=== PATIENT | male | born 1945 | race Caucasian/White ===

== ENCOUNTER → 2017-09-25 | Outpatient (CLI) | payer MEDICARE ==
[~2017-09-25] MED LIST: AZIT250 PO; Altoprev20 MG PO; BENTYL10 MG PO; HYDR1TAB94 PO; Mylanta Gas Ma125 MG PO; OMEP10ER PO; Omeprazole20 M1 PO; ZESTORETIC 20-1 EAC1 PO; ZESTORETIC 20-121 EA PO
== END | disposition home or self-care (01) ==
LOC: LAB EV 11:36
DX: L73.9 Follicular disorder, unspecified (principal)
CPT/HCPCS: 87070; 87075; 87205

== ENCOUNTER 2018-04-07 10:59 | Emergency (ER) | payer MEDICARE ==
[~2018-04-07] VITALS: Ht 172.7 cm; Wt 99.8 kg
[~2018-04-07 10:59] MED LIST changes: -ZESTORETIC 20-1 EAC1 PO
[2018-04-07 11:26] LABS: BASOPHILS ABSOLUTE AUTO 0.07 K/mm3 (0.00-0.23); BASOPHILS PERCENT AUTO 1 % (0-2); EOSINOPHILS ABSOLUTE AUTO 0.25 K/mm3 (0.00-0.68); EOSINOPHILS PERCENT AUTO 3 % (0-6); Hematocrit 49.3 % (37.0-53.0); Hemoglobin 16.5 g/dL (13.5-17.5); IMMATURE GRAN ABSOLUTE AUTO 0.02 K/mm3 (0.00-0.10); IMMATURE GRAN PERCENT AUTO 0 % (0-1); LYMPHOCYTES ABSOLUTE AUTO 2.29 K/mm3 (0.84-5.20); LYMPHOCYTES PERCENT AUTO 26 % (21-46); MONOCYTES ABSOLUTE AUTO 0.67 K/mm3 (0.16-1.47); MONOCYTES PERCENT AUTO 8 % (4-13); Mean Corpuscular HGB 31.7 pg (26.0-34.0); Mean Corpuscular HGB Conc 33.5 g/dL (31.5-36.5); Mean Corpuscular Volume 95 fL (80-100); NEUTROPHILS PERCENT AUTO 63 % (41-73); Platelet Count 316 K/mm3 (150-400); RDW Standard Deviation 45.8 fL (35.1-46.3)
[2018-04-07 11:43] LABS: Alanine Aminotransfer (ALT/SGP 40 U/L (12-78); Albumin, Blood 4.1 g/dL (3.4-5.0); Alk Phos 71 U/L (50-136); Anion Gap 9 mmol/L (6-16); Aspartate Aminotrans (AST/SGOT 23 U/L (12-37); Bilirubin, Total 0.8 mg/dL (0.1-1.0); Blood Urea Nitrogen 10 mg/dL (8-24); Bun/Creatinine Ratio 10.3 (12.0-20.0); CO2, Blood 22 mmol/L (21-32); Calcium, Blood 9.1 mg/dL (8.5-10.1); Chloride, Blood 106 mmol/L (98-108); Creatinine, Blood 0.97 mg/dL (0.60-1.20); Globulin, Blood 4.3 g/dL (2.2-4.0); Glomerular Filtration Rate >60 (60-); Glucose, Blood 103 mg/dL (70-99); Potassium, Blood 3.9 mmol/L (3.5-5.5); Sodium, Blood 137 mmol/L (136-145); Total Protein, Blood 8.4 g/dL (6.4-8.2); Troponin I <0.015 ng/mL (0.000-0.040)
[2018-04-07] MEDS ORDERED: ZESTORETIC 20-1 EAC1 PO (12:02)
== END 2018-04-07 13:39 | disposition home or self-care (01) ==
LOC: ER 10:59
PROVIDERS: Emergency Medicine
DX: R00.2 Palpitations (principal); Z79.899 Other long term (current) drug therapy
CPT/HCPCS: 36415; 80053; 84443; 84484; 85025; 93005; 93010; 99285-25

== ENCOUNTER 2020-04-04 13:04 | Emergency (ER) | payer MEDICARE ==
[~2020-04-04] VITALS: Ht 172.7 cm; Wt 99.8 kg
[~2020-04-04 13:04] MED LIST changes: +ZESTORETIC 20-1 EAC1 PO
== END 2020-04-04 18:00 | disposition home or self-care (01) ==
LOC: ER 13:04
DX: N44.2 Benign cyst of testis (principal); I10 Essential (primary) hypertension; E78.5 Hyperlipidemia, unspecified; Z79.899 Other long term (current) drug therapy
CPT/HCPCS: 76870; 99284-25

== ENCOUNTER 2024-12-02 11:14 | Day surgery (SDC) | payer MEDICARE ==
[~2024-12-02] VITALS: Ht 172.7 cm; Wt 106.8 kg
[~2024-12-02 11:14] MED LIST changes: +Lactated Ringer's 1,000 ML IV ONE; +propofoL 50 ML IV ONE
[2024-12-02] MEDS ORDERED: ERGO400 (11:42)
[2024-12-02] MEDS ORDERED: VITAMIN B-1250 MCG (11:43)
[2024-12-02] MEDS ORDERED: Vitamin C100 M1 (11:43)
[2024-12-02] MEDS ORDERED: Lactated Ringer's 1,000 ML IV ONE (12:54)
[2024-12-02 14:23] VITALS: BP 112/68
== END 2024-12-02 14:15 | disposition home or self-care (01) ==
LOC: ORSCSDS 11:14
PROVIDERS: Internal Medicine Gastroenterology
PROC: 0DBN8ZX Excision of Sigmoid Colon, Via Natural or Artificial Opening Endoscopic, Diagnostic (ICD-10-PCS; principal; 2024-12-02 12:45)
PROC: 0DBM8ZX Excision of Descending Colon, Via Natural or Artificial Opening Endoscopic, Diagnostic (ICD-10-PCS; principal; 2024-12-02 12:45)
PROC: 0DBL8ZX Excision of Transverse Colon, Via Natural or Artificial Opening Endoscopic, Diagnostic (ICD-10-PCS; principal; 2024-12-02 12:45)
PROC: 0DBK8ZX Excision of Ascending Colon, Via Natural or Artificial Opening Endoscopic, Diagnostic (ICD-10-PCS; principal; 2024-12-02 12:45)
DX: Z12.11 Encounter for screening for malignant neoplasm of colon (principal); Z86.0100 Personal history of colon polyps, unspecified; K57.30 Diverticulosis of large intestine without perforation or abscess without bleeding; I10 Essential (primary) hypertension; D12.2 Benign neoplasm of ascending colon; D12.3 Benign neoplasm of transverse colon; D12.4 Benign neoplasm of descending colon; D12.6 Benign neoplasm of colon, unspecified; Z79.899 Other long term (current) drug therapy
CPT/HCPCS: 88305; J2704; J7120

== ENCOUNTER 2025-05-03 11:30 | Inpatient (IN) | payer MEDICARE ==
[~2025-05-03] VITALS: Ht 170.2 cm; Wt 106.1 kg
[~2025-05-03 11:30] MED LIST changes: +ERGO400; -Lactated Ringer's 1,000 ML IV ONE; +OMEP20ER PO; -Omeprazole20 M1 PO; +VITAMIN B-1250 MCG; +Vitamin C100 M1; -propofoL 50 ML IV ONE
[2025-05-03] MEDS ORDERED: Vancomycin (Pharmacy Consult) IV SCH (13:20)
[2025-05-03] MEDS ORDERED: FLU VACC TS2025(65UP)/MF59C/PF 45 MCG/0.5 ML SYRINGE IM SCH (13:20)
[2025-05-03] MEDS ORDERED: CefTRIAXone Sodium 1,000 MG in NS 100 ML IV SCH (13:32)
[2025-05-03 13:35] LABS: Influenza A, PCR NEGATIVE (NEGATIVE); Influenza B, PCR NEGATIVE (NEGATIVE); Resp Syncytial Virus, PCR NEGATIVE (NEGATIVE); SARS-Cov-2 (COVID-19) PCR, MMC NEGATIVE (NEGATIVE)
[2025-05-03] MEDS ORDERED: Vancomycin HCL 2,500 MG in NS 500 ML IV ONE (13:45)
[2025-05-03] MEDS ORDERED: CefTRIAXone 1000 MG Vial ONE (14:21)
[2025-05-03 14:59] VITALS: BP 177/79
[2025-05-03] MEDS ORDERED: HydrALAZINE HCl 20 MG / ML 1ML Vial IV PRN (16:40)
--- NOTE | 2025-05-03 18:27 | NUR ---
END OF SHIFT SUMMARY: A&Ox4. PLEASANT AND COOPERATIVE WITH CARE. CALLS APPROPRIATELY AND IS ABLE TO ADVOCATE NEEDS EFFECTIVELY. VSS. TELE STRIP IN CHART REVIEWED AND INTERPRETED SINUS. BREATHING EVEN AND UNLABORED c RA. CONTINENT OF BOWEL AND BLADDER; LBM 05/03/25. TOLERATING DIET. AMBULATES INDEPENDENTLY @ BASELINE; SBA WHILE HERE. MEDS WHOLE c FLUIDS. LR @ 100mL/hr AND VANCO CURRENTLY INFUSING. BED IN LOWEST POSITION, CALL LIGHT WITHIN REACH, ALL NEEDS MET. REPORT TO ONCOMING NURSE.
[2025-05-03 19:13] VITALS: BP 152/62
[2025-05-03] MEDS ORDERED: Lactobacil 2-S.Thermo-Bifido 1 1 Cap PO SCH (21:00)
[2025-05-04] VITALS (10 sets, daily range): BP systolic 104–162; BP diastolic 45–104
--- NOTE | 2025-05-04 04:38 | NUR ---
SHIFT SUMMARY: AOX4. TELEMETRY MONITORING, NSR 90s. ON RA. LUNG SOUNDS HAD SOME RHONCHI TO LEFT UPPER LOBES. PT RECIEVED MAALOX THIS EVENING FOR BELCHING WITH SOME RELIEF. PT TOLERATING CLEAR LIQUID DIET WITH NO NAUSEA/VOMITING. CALL LIGHT IS WITHIN REACH. BED IS LOW AND LOCKED.
[2025-05-04 04:55] LABS: BASOPHILS ABSOLUTE AUTO 0.04 K/mm3 (0.00-0.23); BASOPHILS PERCENT AUTO 0 % (0-2); EOSINOPHILS ABSOLUTE AUTO 0.00 K/mm3 (0.00-0.68); EOSINOPHILS PERCENT AUTO 0 % (0-6); Hematocrit 37.0 % (37.0-53.0); Hemoglobin 12.7 g/dL (13.5-17.5); IMMATURE GRAN ABSOLUTE AUTO 0.05 K/mm3 (0.00-0.10); IMMATURE GRAN PERCENT AUTO 0 % (0-1); LYMPHOCYTES ABSOLUTE AUTO 2.35 K/mm3 (0.84-5.20); LYMPHOCYTES PERCENT AUTO 20 % (21-46); MONOCYTES ABSOLUTE AUTO 0.83 K/mm3 (0.16-1.47); MONOCYTES PERCENT AUTO 7 % (4-13); Mean Corpuscular HGB Conc 34.3 g/dL (31.5-36.5); Mean Corpuscular Volume 91 fL (80-100); NEUTROPHILS ABSOLUTE AUTO 8.57 K/mm3 (1.96-9.15); NEUTROPHILS PERCENT AUTO 73 % (41-73); NRBC ABSOLUTE 0.00 K/mm3 (0.00-0.02); NRBC Auto 0.0 /100 WBC (0.0-0.2); Platelet Count 196 K/mm3 (150-400); RDW Coefficient Variation 13.7 % (11.7-14.2); RDW Standard Deviation 46.0 fL (35.1-46.3)
[2025-05-04 05:24] LABS: Anion Gap 9.0 mmol/L (3-11); Blood Urea Nitrogen 14.0 mg/dL (8-24); CO2, Blood 25.0 mmol/L (21-32); Calcium, Blood 8.4 mg/dL (8.5-10.1); Chloride, Blood 99.0 mmol/L (98-108); Creatinine, Blood 0.99 mg/dL (0.60-1.20); Glucose, Blood 114.0 mg/dL (70-99); Potassium, Blood 3.3 mmol/L (3.5-5.5); Sodium, Blood 130.0 mmol/L (136-145)
[2025-05-04] MEDS ORDERED: Cholecalciferol 1000 Unit Tablet (=25MCG) PO SCH (09:00)
[2025-05-04] MEDS ORDERED: Ascorbic Acid 250 MG Chew PO SCH (09:00)
[2025-05-04] MEDS ORDERED: Enoxaparin 40 MG/0.4 ML SYR SC SCH (09:00)
[2025-05-04] MEDS ORDERED: C COMPLEX1000 M1 PO (09:26)
[2025-05-04] MEDS ORDERED: VITAMIN D31000 UNI1 PO (09:27)
[2025-05-04] MEDS ORDERED: VITAMIN B12500 MCG PO (09:28)
[2025-05-04] MEDS ORDERED: FAMO20 PO (09:30)
--- NOTE | 2025-05-04 09:45 | NUR ---
ASSUMPTION OF CARE: THIS RN ASSUMED CARE OF PATIENT. AWAKE DURING SHIFT CHANGE REPORT. SITTING UP IN BED, GETTING UP TO GO TO BATHROOM. LR RUNNING. BREATHING EVEN AND UNLABORED c RA. MOST RECENT TELE STRIP IN CHART INTERPRETED SINUS RHYTHM @ 86. DR HARDEN ROUNDED FOR GEN SURG CONSULT: PT NPO x WATER AFTER 1100 IN ANTICIPATION OF EGD LATER TODAY. BED IN LOWEST POSITION. CALL LIGHT WITHIN REACH. ACUTE NEEDS MET.
[2025-05-04] MEDS ORDERED: LISINOPRIL-HCT1 EACH PO (15:59)
--- NOTE | 2025-05-04 19:16 | NUR ---
OYE-NQ-LLGRW SUMMARY: A&Ox4. PLEASANT AND COOPERATIVE c CARE. CALLS APPROPRIATELY AND IS ABLE TO ADVOCATE NEEDS EFFECTIVELY. TELE RUNNING SINUS RHYTHM. FLUIDS COMPLETED x2 BAGS LR. VSS. LABS WNL. ABD CT COMPLETED. LEAVING FOR EGD AT END OF THIS NURSE'S SHIFT DUE TO SURGICAL WORK-INS. NO ACUTE CONCERNS. AMBULATES INDEPENDENTLY; SBA FOR LINE MANAGEMENT. CONTINENT OF BOWEL AND BLADDER. SURGICAL CONSULT COMPLETED TODAY. MADE NPO AFTER 1100 IN ANTICIPATION OF EGD. PT LEAVING FOR PROCEDURE AT END OF THIS NURSE'S SHIFT. REPORT TO ONCOMING RN.
--- NOTE | 2025-05-04 19:30 | NUR ---
05/04/[id number] Douglas Glez History, Chart, Medications and Allergies reviewed before start of procedure. MONITOR INTACT WITH CONTINUOUS PULSE OXIMETRY, CONTINUOUS END TITAL CO2, 3-LEAD EKG AND INTERMITTENT BLOOD PRESSURE. 3-LEAD EKG REVIEWED WITH PHYSICIAN PRIOR TO START OF PROCEDURE. O2 VIA POM INTACT THROUGHOUT SEDATION/PROCEDURE. Bite Block Placed AT START OF PROCEDURE. TELE MONITOR IN PLACE. DENTURES LEFT IN PT'S ROOM PER PT.
--- NOTE | 2025-05-04 21:53 | NUR ---
20G IV IN RAC DC'D WHILE PT WAS ASLEEP DUE TO INFILTRATION. PT TOW. SECOND IV SITE ALREADY IN PLACE AND FLUSHED WELL. ABLE TO USE THAT IV FOR THE PROCEDURE.
[2025-05-05 03:36] VITALS: BP 110/51
[2025-05-05 04:46] LABS: BASOPHILS ABSOLUTE AUTO 0.03 K/mm3 (0.00-0.23); BASOPHILS PERCENT AUTO 0 % (0-2); EOSINOPHILS ABSOLUTE AUTO 0.11 K/mm3 (0.00-0.68); EOSINOPHILS PERCENT AUTO 1 % (0-6); Hematocrit 37.0 % (37.0-53.0); Hemoglobin 12.9 g/dL (13.5-17.5); IMMATURE GRAN ABSOLUTE AUTO 0.06 K/mm3 (0.00-0.10); IMMATURE GRAN PERCENT AUTO 1 % (0-1); LYMPHOCYTES ABSOLUTE AUTO 2.06 K/mm3 (0.84-5.20); LYMPHOCYTES PERCENT AUTO 22 % (21-46); MONOCYTES ABSOLUTE AUTO 0.93 K/mm3 (0.16-1.47); MONOCYTES PERCENT AUTO 10 % (4-13); Mean Corpuscular HGB Conc 34.9 g/dL (31.5-36.5); Mean Corpuscular Volume 91 fL (80-100); NEUTROPHILS ABSOLUTE AUTO 6.35 K/mm3 (1.96-9.15); NEUTROPHILS PERCENT AUTO 67 % (41-73); NRBC ABSOLUTE 0.00 K/mm3 (0.00-0.02); NRBC Auto 0.0 /100 WBC (0.0-0.2); Platelet Count 214 K/mm3 (150-400); RDW Coefficient Variation 13.6 % (11.7-14.2); RDW Standard Deviation 46.1 fL (35.1-46.3)
[2025-05-05 05:07] LABS: Anion Gap 9.0 mmol/L (3-11); Blood Urea Nitrogen 16.0 mg/dL (8-24); CO2, Blood 24.0 mmol/L (21-32); Calcium, Blood 8.6 mg/dL (8.5-10.1); Chloride, Blood 101.0 mmol/L (98-108); Creatinine, Blood 0.91 mg/dL (0.60-1.20); Glucose, Blood 104.0 mg/dL (70-99); Potassium, Blood 3.3 mmol/L (3.5-5.5); Sodium, Blood 131.0 mmol/L (136-145)
--- NOTE | 2025-05-05 05:49 | NUR ---
SHIFT SUMMARY PATIENT IS ALERT AND ORIENTED. PATIENT HAS HAD NO ACUTE EVENTS THIS SHIFT. VITAL SIGNS REVIEWED. PATIENT HAS HAD NO EVENTS ON TELE. PATIENT HAS HAD EGD THIS SHIFT, SEE REPORT. PATIENT HAS HAD NO COMPLAINTS OF PAIN, NAUSEA, SOB OR VOMITTING THIS SHIFT. BED IN LOCKED AND LOWEST POSITION. CALL LIGHT IN PLACE.
[2025-05-05 07:46] VITALS: BP 137/67
[2025-05-05 11:39] VITALS: BP 136/62
[2025-05-05] MEDS ORDERED: NS 250 ML IV PRN (12:50)
[2025-05-05 16:04] VITALS: BP 154/74
--- NOTE | 2025-05-05 18:34 | NUR ---
SHIFT SUMMARY PT AOX4, COOPERATIVE, ABLE TO MAKE NEEDS KNOWN. PT IS IND IN ROOM, ON TELE. TOLERATING MEDICATIONS. POSSIBLE DC 05/06/25. NO OTHER ACUTE EVENTS TOOK PLACE DURING SHIFT. BED IN LOWEST POSITION, CALL LIGHT WITHIN REACH.
[2025-05-05 19:20] VITALS: BP 124/59
[2025-05-05 23:41] VITALS: BP 134/70
[2025-05-06 03:53] VITALS: BP 132/72
--- NOTE | 2025-05-06 04:05 | NUR ---
SHIFT SUMMARY PATIENT HAD NO ACUTE CHANGES. LAERT ORIENTED AND INDEPENDENT IN ROOM. [place]. PIV INTACT. TELE MONITOR NSR 77. DENIES CHEST PAIN, SOB, AND N/V. VSS/AFEBRILE. SLEPT MOST OF THE SHIFT. CALL LIGHT IN REACH. BED IN LOWEST POSITION. WILL CONTINUE TO MONITOR UNTIL DAY SHIFT NURSE ASSUMES CARE.
[2025-05-06 06:01] LABS: BASOPHILS ABSOLUTE AUTO 0.04 K/mm3 (0.00-0.23); BASOPHILS PERCENT AUTO 1 % (0-2); EOSINOPHILS ABSOLUTE AUTO 0.30 K/mm3 (0.00-0.68); EOSINOPHILS PERCENT AUTO 3 % (0-6); Hematocrit 34.8 % (37.0-53.0); Hemoglobin 12.0 g/dL (13.5-17.5); IMMATURE GRAN ABSOLUTE AUTO 0.05 K/mm3 (0.00-0.10); IMMATURE GRAN PERCENT AUTO 1 % (0-1); LYMPHOCYTES ABSOLUTE AUTO 2.40 K/mm3 (0.84-5.20); LYMPHOCYTES PERCENT AUTO 28 % (21-46); MONOCYTES ABSOLUTE AUTO 1.01 K/mm3 (0.16-1.47); MONOCYTES PERCENT AUTO 12 % (4-13); Mean Corpuscular HGB Conc 34.5 g/dL (31.5-36.5); Mean Corpuscular Volume 92 fL (80-100); NEUTROPHILS ABSOLUTE AUTO 4.92 K/mm3 (1.96-9.15); NEUTROPHILS PERCENT AUTO 56 % (41-73); NRBC ABSOLUTE 0.00 K/mm3 (0.00-0.02); NRBC Auto 0.0 /100 WBC (0.0-0.2); Platelet Count 217 K/mm3 (150-400); RDW Coefficient Variation 13.6 % (11.7-14.2); RDW Standard Deviation 46.4 fL (35.1-46.3)
[2025-05-06 06:37] LABS: Anion Gap 9.0 mmol/L (3-11); Blood Urea Nitrogen 14.0 mg/dL (8-24); CO2, Blood 24.0 mmol/L (21-32); Calcium, Blood 8.5 mg/dL (8.5-10.1); Chloride, Blood 102.0 mmol/L (98-108); Creatinine, Blood 0.87 mg/dL (0.60-1.20); Glucose, Blood 101.0 mg/dL (70-99); Potassium, Blood 3.6 mmol/L (3.5-5.5); Sodium, Blood 131.0 mmol/L (136-145)
[2025-05-06 08:05] VITALS: BP 130/74
[2025-05-06 11:44] VITALS: BP 145/65
[2025-05-06] MEDS ORDERED: AMOCLA875 PO (14:15)
[2025-05-06] MEDS ORDERED: LACT PO (14:15)
[2025-05-06 14:41] LABS: Vancomycin, Trough <0.8 ug/mL (5.0-10.0)
[2025-05-06] MEDS ORDERED: LISI20 PO (15:03)
--- NOTE | 2025-05-06 15:22 | NUR ---
DISCHARGE SUMMARY PT DISCHARGED HOME. NEEDED RX SENT TO [facility] PER PT REQUEST. IV REMOVED BY CNBrad, SITE APPEARS WNL. TELE REMOVED/CLEANED AND SENT BACK TO PCU. DISCHARGE INSTRUCTIONS REVIEWED WITH PT. PT DENIES QUESTIONS OR CONCERNS. PT ABLE TO STAND AND AMBULATED INDEPENDENTLY TO WHEELCHAIR. WHEELED DOWN TO VEHICLE OPERATED BY FAMILY FRIEND BY RN.
== END 2025-05-06 15:14 | disposition home or self-care (01) | DRG 871 ==
LOC: ER 11:30 → MEDS 13:15
PROVIDERS: Emergency Medicine; Internal Medicine Gastroenterology; ADMIT Family Medicine
PROC: 3E03329 Introduction of Other Anti-infective into Peripheral Vein, Percutaneous Approach (ICD-10-PCS; 2025-05-03)
PROC: 0DB98ZX Excision of Duodenum, Via Natural or Artificial Opening Endoscopic, Diagnostic (ICD-10-PCS; 2025-05-04)
PROC: 0DB68ZX Excision of Stomach, Via Natural or Artificial Opening Endoscopic, Diagnostic (ICD-10-PCS; 2025-05-04)
PROC: 0DB48ZX Excision of Esophagogastric Junction, Via Natural or Artificial Opening Endoscopic, Diagnostic (ICD-10-PCS; principal; 2025-05-04 18:00)
DX: A41.9 Sepsis, unspecified organism (principal); J18.9 Pneumonia, unspecified organism; N39.0 Urinary tract infection, site not specified; N17.9 Acute kidney failure, unspecified; E87.1 Hypo-osmolality and hyponatremia; R65.20 Severe sepsis without septic shock; I10 Essential (primary) hypertension; E78.5 Hyperlipidemia, unspecified; K21.9 Gastro-esophageal reflux disease without esophagitis; D64.9 Anemia, unspecified; E66.9 Obesity, unspecified; B96.1 Klebsiella pneumoniae [K. pneumoniae] as the cause of diseases classified elsewhere; M19.90 Unspecified osteoarthritis, unspecified site; M54.50 Low back pain, unspecified; Z87.19 Personal history of other diseases of the digestive system; Z98.890 Other specified postprocedural states; Z87.81 Personal history of (healed) traumatic fracture; Z79.891 Long term (current) use of opiate analgesic; Z79.899 Other long term (current) drug therapy; Z68.36 Body mass index [BMI] 36.0-36.9, adult; R10.9 Unspecified abdominal pain; R00.0 Tachycardia, unspecified; K63.89 Other specified diseases of intestine; R50.9 Fever, unspecified
CPT/HCPCS: 36415; 71046; 71260; 74019; 80048; 80053; 80202; 83605; 83690; 84484; 85025; 87040; 87077; 87086; 87186; 87637; 88305; 88342; 92610; 99284; A9270; J0696; J1650; J2704; J3373; J7040; J7050; J7120; Q9967

== ENCOUNTER → 2025-07-30 | Outpatient (CLI) | payer MEDICARE ==
[~2025-07-30] MED LIST changes: +AMOCLA875 PO; +C COMPLEX1000 M1 PO; +FAMO20 PO; +LACT PO; +LISI20 PO; +LISINOPRIL-HCT1 EACH PO; +VITAMIN B12500 MCG PO; +VITAMIN D31000 UNI1 PO
== END ==
LOC: LAB 09:13 → LAB SHORT 09:13
DX: N39.0 Urinary tract infection, site not specified (principal); R31.9 Hematuria, unspecified
CPT/HCPCS: 87077; 87086; 87186